=== PATIENT | female | born 1995 | race Caucasian/White ===

== ENCOUNTER 2020-09-07 13:34 | Emergency (ER) | payer OTHER ==
[~2020-09-07] VITALS: Ht 162.6 cm; Wt 79.4 kg
[2020-09-07 13:38] VITALS: BP 128/79
--- NOTE | 2020-09-07 13:42 | NUR ---
PATIENT AMBULATED TO BED 2.
--- NOTE | 2020-09-07 13:52 | NUR ---
Pt presents to ER for pelvic pain. Per pt she has "uterine pain" x 1.5 weeks and reports her last period 08/28/20 only lasted 2 days, unusual for pt. Pt reports having unprotected sex 08/11/20. Denies any bleeding or discharge. Pt awake and alert. Awaiting for ERMD to evaluate pt.
--- NOTE | 2020-09-07 14:07 | NUR ---
Ultrasound at bedside
--- NOTE | 2020-09-07 15:00 | NUR ---
Pt resting comfortably in bed. No concerns at this time. Will continue to monitor.
[2020-09-07 17:10] VITALS: BP 126/72
--- NOTE | 2020-09-07 17:10 | NUR ---
Patient discharged with v/s stable. Written and verbal after care instructions given and explained. Patient alert, oriented and verbalized understanding of instructions. Ambulatory with steady gait. All questions addressed prior to discharge. ID band removed. Patient advised to follow up with PMD. Rx of Motrin 800mg and mineral oil 30ml was given. Patient educated on indication of medication including possible reaction and side effects. Opportunity to ask questions provided and answered.
== END 2020-09-07 17:10 | disposition home or self-care (01) ==
LOC: MED 13:34
DX: R10.2 Pelvic and perineal pain (principal); Z88.0 Allergy status to penicillin
CPT/HCPCS: 74018; 76856; 81002; 81025; 99284